=== PATIENT | female | born 1930 | race Caucasian/White ===

== ENCOUNTER 2017-01-21 10:21 | Emergency (ER) | payer OTHER ==
[~2017-01-21] VITALS: Ht 152.4 cm; Wt 45.0 kg
[~2017-01-21 10:21] MED LIST: ASPI81TA82 PO; COZA50TA PO; LEVO.025 PO
[2017-01-21 10:23] VITALS: BP 121/54; PULSE 70; RESP 18; TEMP 98; O2SAT 97
[2017-01-21] MEDS ORDERED: LEVO25TA4 PO (10:39)
[2017-01-21] MEDS ORDERED: htn med (10:39)
[2017-01-21] MEDS ORDERED: HYDROmorphone HCL PF 1 MG/ML VIAL SQ ONE (11:30)
--- NOTE | 2017-01-21 11:57 | PD ---
HPI Chief Complaint: Hip Injury Time Seen by Provider: 10:30 Travel History International Travel<30 days: No Contact w/Intl Traveler<30days: No Traveled to known affect area: No History of Present Illness HPI 86-year-old female arrives complaining of left hip pain. She had a mechanical fall last night. She was able to ambulate with a cane however states she cannot put any weight on the left lower extremity. She had no head injury or injury otherwise. She does not take anticoagulation. Pain is worse with pressure and attempts at hip flexion. It can be severe at times. PFSH Past Medical History Hx Anticoagulant Therapy: Yes (BABY ASA) Arthritis: Yes Blood Disorders: No Anxiety: Yes Heart Rhythm Problems: No Cancer: No Cardiovascular Problems: Yes (HTN) High Cholesterol: No Chest Pain: No Congestive Heart Failure: No Cerebrovascular Accident: No Diabetes: No Endocrine: No Genitourinary: No Headaches: No Hypertension: Yes Immune Disorder: No Neurologic: No Psychiatric: No Respiratory: No Myocardial Infarction: No Seizures: No Thyroid Disease: Yes (HYPOTHYROIDISM) ?: Not Menopausal: Yes : 2 Para: 2 Ovarian Cysts: Yes Past Surgical History AICD: No Cardiac Surgery: No Section: Yes (X2) Ear Surgery: No Endocrine Surgery: No Eye Surgery: No Genitourinary Surgery: No Gynecologic Surgery: Yes ( X 2 IN THE 50'S) Joint Replacement: No Oral Surgery: No Pacemaker: No Thoracic Surgery: Yes (BREAST LUMP REMOVED -- FIBROID TUMORS) Tonsillectomy: Yes Other Surgery: Yes Social History Alcohol Use: Yes ("MAYBE ONCE A MONTH") Tobacco Use: Yes (1/2 PPD) Substance Use: No Allergies-Medications (Allergen,Severity, Reaction): Coded Allergies: Penicillin (Verified Allergy, Severe, 01/21/17) Reported Meds & Prescriptions Reported Meds & Active Scripts Active Lortab (Hydrocodone-Acetaminophen) 5-325 Mg Tab 1-2 Tab PO Q6H PRN Reported [htn med] Levothyroxine (Levothyroxine Sodium) 25 Mcg Tab 25 Mcg PO DAILY Review of Systems Except as stated in HPI: all other systems reviewed are Neg Physical Exam Narrative GENERAL: 86-year-old female pleasant no acute distress SKIN: Focused skin assessment warm/dry. HEAD: Atraumatic. Normocephalic. EYES: Pupils equal and round. No scleral icterus. No injection or drainage. ENT: No nasal bleeding or discharge. Mucous membranes pink and moist. NECK: Trachea midline. No JVD. CARDIOVASCULAR: Regular rate and rhythm. No murmur appreciated. RESPIRATORY: No accessory muscle use. Clear to auscultation. Breath sounds equal bilaterally. GASTROINTESTINAL: Abdomen soft, non-tender, nondistended. Hepatic and splenic margins not palpable. MUSCULOSKELETAL: No pain with axial load on either side. The patient is unable to flex at the hip/elevate the left lower extremity secondary to pain. NEUROLOGICAL: Awake and alert. No obvious cranial nerve deficits. Motor grossly within normal limits. Normal speech. PSYCHIATRIC: Appropriate mood and affect; insight and judgment normal. Data Data Last Documented VS Vital Signs Date Time Temp Pulse Resp B/P Pulse Ox O2 Delivery O2 Flow Rate FiO2 01/21/17 10:23 98.0 70 18 121/54 97 Orders Hydromorphone Pf Inj (Dilaudid Pf Inj) (01/21/17 11:30) Ct Pelvis W/O Iv Contrast (01/21/17 ) MDM Medical Decision Making Medical Screen Exam Complete: Yes Emergency Medical Condition: Yes Medical Record Reviewed: Yes Differential Diagnosis Pubic ramus fracture, contusion, femur fracture Narrative Course Last [address] 01/21/17 0000 Signed Impressions: Service Date/Time: , January 21, 2017 11:25 - CONCLUSION: Diffuse osteopenia. No evidence of pelvic or hip fracture. Delroy Mccloud MD Pain control. Patient ambulatory. Follow-up with orthopedics and/or primary care as needed. Short course of Lortab provided. Patient has used this in the past effectively. Diagnosis Primary Impression: Fall Qualified Code: W19.XXXA - Fall, initial encounter Additional Impression: Contusion of left hip Qualified Code: S70.02XA - Contusion of left hip, initial encounter Referrals: Primary Care Physician 2 days Additional Instructions: You have a choice when it comes to health care, and we are glad that you chose [facility]. Hopefully, we have met your expectations on today's visit. You are welcome to return to [facility] at any time, as we are committed to meeting the health care needs of our community. Med/Other Pt SpecificInfo: No Change to Meds Scripts Hydrocodone-Acetaminophen (Lortab)5-325 Mg Tab1-2 Tab PO Q6H PRN (PAIN SCALE 6 TO 10) #10 TAB Ref 0 Prov:Conner Moody MD 01/21/17 Disposition: 01 DISCHARGE HOME Condition: Stable Conner Moody MD Jan 21, 2017 11:56
--- NOTE | 2017-01-21 12:03 | RADHPO ---
EXAM DATE/TIME: 01/21/2017 11:25 [facility] COMPARISON: No previous studies available for comparison. INDICATIONS : Fall yesterday with left hip pain. ORAL CONTRAST: No oral contrast ingested. RADIATION DOSE: 18.58 CTDIvol (mGy) MEDICAL HISTORY : None SURGICAL HISTORY : None. ENCOUNTER: Initial ACUITY: 2 days PAIN SCALE: 7/10 LOCATION: Left pelvis TECHNIQUE: Volumetric scanning of the pelvis was performed. Using automated exposure control and adjustment of the mA and/or kV according to patient size, radiation dose was kept as low as reasonably achievable t o obtain optimal diagnostic quality images. FINDINGS: Osseous structures are diffusely osteopenic. The bony pelvic ring is intact. The proximal femora ar e intact. No fractures seen. There is a focal ossification near the left femoral head fovea. The b hebert pelvic ring is grossly intact. The sacrum is normal curvature. Moderate severity degenerative c hanges of the posterior elements of the visualized lower lumbar spine. No evidence of free fluid in the pelvis. Urinary bladder margins are smooth. The inguinal region is unremarkable. CONCLUSION: Diffuse osteopenia. No evidence of pelvic or hip fracture. Delroy Mccloud MD on January 21, 2017 at 11:58 Board Certified Radiologist. This report was verified electronically.
[2017-01-21] MEDS ORDERED: HYDR-3533 PO (13:05)
== END 2017-01-21 13:13 | disposition home or self-care (01) ==
LOC: PHED 10:21
DX: S70.02XA Contusion of left hip, initial encounter (principal); I10 Essential (primary) hypertension; E03.9 Hypothyroidism, unspecified; F17.200 Nicotine dependence, unspecified, uncomplicated; Z79.82 Long term (current) use of aspirin; Z87.39 Personal history of other diseases of the musculoskeletal system and connective tissue; Z86.59 Personal history of other mental and behavioral disorders; Z86.79 Personal history of other diseases of the circulatory system; W19.XXXA Unspecified fall, initial encounter
CPT/HCPCS: 72192